=== PATIENT | male | born 1975 | race Caucasian/White ===

== ENCOUNTER → 2021-08-14 | Day surgery (SDC) | payer OTHER ==
[2021-08-10 14:31] VITALS: BP 125/74
[~2021-08-14] VITALS: Ht 185.4 cm; Wt 99.8 kg
[2021-08-14] VITALS (7 sets, daily range): BP systolic 101–153; BP diastolic 59–97
[~2021-08-14] MED LIST: COLACE100 MG PO; PERCOCET 5-3251 EACH PO; ZOFRAN4 MG PO
== END | disposition home or self-care (01) ==
LOC: SDC 08-10 14:00
PROVIDERS: ATTEND Surgery
DX: K43.6 Other and unspecified ventral hernia with obstruction, without gangrene (principal); J45.909 Unspecified asthma, uncomplicated; Z79.899 Other long term (current) drug therapy; Z20.822 Contact with and (suspected) exposure to COVID-19